=== PATIENT | male | born 1945 | race Caucasian/White ===

== ENCOUNTER 2022-08-19 22:19 | Emergency (ER) | payer OTHER ==
[~2022-08-19] VITALS: Ht 170.2 cm; Wt 79.4 kg
[2022-08-19] MEDS ORDERED: METOPROLOL TART25 MG PO (22:32)
[2022-08-19] MEDS ORDERED: ISOSORBIDE MONO20 MG PO (22:32)
[2022-08-19] MEDS ORDERED: LOSARTAN POTASS25 MG PO (22:33)
[2022-08-19] MEDS ORDERED: FLOMAX0.4 MG PO (22:33)
[2022-08-19] MEDS ORDERED: FUROSEMIDE20 MG (22:33)
[2022-08-19] MEDS ORDERED: TRAZODONE HCL50 MG PO (22:34)
[2022-08-19] MEDS ORDERED: LIPITOR20 MG PO (22:34)
[2022-08-19] MEDS ORDERED: AMLODIPINE BES2.5 MG PO (22:34)
== END 2022-08-20 06:40 | disposition home or self-care (01) ==
LOC: ED 22:19
DX: E11.649 Type 2 diabetes mellitus with hypoglycemia without coma (principal); T38.3X5A Adverse effect of insulin and oral hypoglycemic [antidiabetic] drugs, initial encounter; E87.1 Hypo-osmolality and hyponatremia; I10 Essential (primary) hypertension; E78.5 Hyperlipidemia, unspecified; Z79.899 Other long term (current) drug therapy; Z79.4 Long term (current) use of insulin
CPT/HCPCS: 36415; 80048; 80053; 81003; 83690; 85025; 99285; J7030

== ENCOUNTER 2022-09-08 11:45 | Inpatient (IN) | payer OTHER, MEDICARE ==
[~2022-09-08] VITALS: Ht 170.2 cm; Wt 71.8 kg
[~2022-09-08 11:45] MED LIST: AMLODIPINE BESY10 MG PO; FLOMAX0.4 MG PO; FUROSEMIDE20 MG PO; ISOSORBIDE MONO60 MG PO; LIPITOR40 MG PO; LOSARTAN POTASS25 MG PO; METOPROLOL TART50 MG PO; TRAZODONE HCL100 MG PO
--- OUTSIDE RECORDS SUMMARY | 2022-09-08 11:50 | XMS ---
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 Michelle has no Care Guidelines for this patient. Harjinder VISIT COUNT (12 MO.) [facility] NOTE: Visits indicate total known visits. ED/C VISIT TRACKING (12 MO.) [facility] 11[facility] COMPLAINT: - SHORTNESS OF BREATH 08/19/2022 22:20 [facility] TYPE: Emergency COMPLAINT: - BLOOD SUGAR PROBLEM DIAGNOSES: - Adverse effect of insulin and oral hypoglycemic [antidiabetic] drugs, initial encounter - Type 2 diabetes mellitus with hypoglycemia without coma - Other meterman (current) drug therapy - Hyperlipidemia, unspecified - Hypo-osmolality and hyponatremia - Essential (primary) hypertension - superintendent container terminal (current) use of insulin [facility] DIAGNOSES: - Dizziness and giddiness - Dizziness - Generalized abdominal pain - Nausea 06/20[facility]2022 10:[facility] DIAGNOSES: - Elevated Blood Sugar (Symptomatic) - Orthostatic hypotension - Dizziness - Pneumonia, unspecified organism - Cough - Acute kidney failure, unspecified INPATIENT VISIT TRACKING (12 MO.) 06[facility]20[facility]2022 10:[facility] DIAGNOSES: - Orthostatic hypotension - Acute kidney failure, unspecified - Other nonspecific abnormal finding of lung field - Pneumonia, unspecified organism [email or web address]
--- NOTE | 2022-09-09 16:43 | EKG ---
[facility] [address] [place], [place] [address] Signed Normal sinus rhythm Incomplete right bundle branch block Left anterior fascicular block Nonspecific ST abnormality Abnormal ECG No previous ECGs available Confirmed by JOHN MORALEZ MD ([id number]) on 09/09/2022 4:43:04 PM Electronically Signed By: JOHN MORALEZ MD 09/09/22 1643 PATIENT NAME: PATT DICKSON Electrocardiogram DATE OF : 49 PHYSICIAN: JOHN MORALEZ MD REPORT #: [id number] REPORT IS CONFIDENTIAL AND NOT TO BE RELEASED WITHOUT AUTHORIZATION
--- NOTE | 2022-09-09 16:43 | EKG ---
[facility] [address] [place] [address] Signed Sinus rhythm with 1st degree AV block Incomplete right bundle branch block Left anterior fascicular block Minimal voltage criteria for LVH, may be normal variant ( Jesús product ) Cannot rule out Anterior infarct , age undetermined Abnormal ECG When compared with ECG of 08-SEP-2022 11:55, (Unconfirmed) Sinus rhythm has replaced Junctional rhythm Confirmed by JONH MORALEZ MD ([id number]) on 09/09/2022 4:43:43 PM Electronically Signed By: JOHN MORALEZ MD 09/09/22 1643 PATIENT NAME: PATT DICKSON Electrocardiogram DATE OF : 49 PHYSICIAN: JOHN MORALEZ MD REPORT #: [id number] REPORT IS CONFIDENTIAL AND NOT TO BE RELEASED WITHOUT AUTHORIZATION
[2022-09-10] MEDS ORDERED: PLAVIX75 MG PO (14:56)
[2022-09-10] MEDS ORDERED: HYDRALAZINE HCL10 MG PO (15:36)
[2022-09-10] MEDS ORDERED: LANTUS100 UNITS/ SUB-Q (15:37)
[2022-09-10] MEDS ORDERED: KLOR-CON 1010 MEQ PO (15:39)
[2022-09-10] MEDS ORDERED: DYRENIUM50 MG PO (15:40)
[2022-09-10] MEDS ORDERED: ADULT LOW DOSE81 MG PO (17:01)
[2022-09-10] MEDS ORDERED: ALEVE220 MG PO (17:02)
[2022-09-10] MEDS ORDERED: PROAIR DIGIHAL90 MCG INH (17:03)
[2022-09-10] MEDS ORDERED: FLONASE ALLERG9.9 ML NAS (17:03)
[2022-09-10] MEDS ORDERED: ATROVENT HFA12.9 GM INH (17:04)
[2022-09-10] MEDS ORDERED: HYDROCODON-ACE1 EA10 PO (17:04)
[2022-09-10] MEDS ORDERED: ONDANSETRON ODT4 MG PO (17:05)
[2022-09-10] MEDS ORDERED: COMBIVENT RESPIM4 GM INH (17:06)
[2022-09-11] MEDS ORDERED: DOXYCYCLINE HY100 MG PO (11:34)
[2022-09-11] MEDS ORDERED: COMBIVENT RESPIM4 GM INH (11:35)
[2022-09-11] MEDS ORDERED: FLOMAX0.4 MG PO (11:36)
[2022-09-11] MEDS ORDERED: NICOTINE LOZENGE4 MG BUCCAL (11:36)
[2022-09-11] MEDS ORDERED: NICOTINE1 EAC2 TD (11:36)
[2022-09-11] MEDS ORDERED: OXYCODONE HCL5 MG PO (11:38)
[2022-09-11] MEDS ORDERED: ACETAMINOPHEN500 MG PO (11:38)
[2022-09-11] MEDS ORDERED: SENNA LAX8.6 MG PO (11:39)
[2022-09-11] MEDS ORDERED: TRAZODONE HCL100 MG PO (11:39)
[2022-09-11] MEDS ORDERED: PREDNISONE20 MG PO (11:40)
[2022-09-11] MEDS ORDERED: LANTUS100 UNITS/ SUB-Q (11:41)
[2022-09-11] MEDS ORDERED: ONE TOUCH ULTR1 EACH VI (11:42)
[2022-09-11] MEDS ORDERED: HUMALOG100 UNITS/ SUB-Q (11:42)
[2022-09-11] MEDS ORDERED: BUDESONIDE0.5 MG/2 M INH (11:47)
== END 2022-09-11 13:27 | DRG 191 ==
LOC: ED 11:45 → MS 18:08
PROVIDERS: ADMIT Internal Medicine; ATTEND Internal Medicine
DX: J44.1 Chronic obstructive pulmonary disease with (acute) exacerbation (principal); C34.90 Malignant neoplasm of unspecified part of unspecified bronchus or lung; E87.1 Hypo-osmolality and hyponatremia; N18.4 Chronic kidney disease, stage 4 (severe); Z66 Do not resuscitate; Z20.822 Contact with and (suspected) exposure to COVID-19; E87.5 Hyperkalemia; E11.649 Type 2 diabetes mellitus with hypoglycemia without coma; N40.0 Benign prostatic hyperplasia without lower urinary tract symptoms; E78.5 Hyperlipidemia, unspecified; G89.3 Neoplasm related pain (acute) (chronic); D63.1 Anemia in chronic kidney disease; F17.210 Nicotine dependence, cigarettes, uncomplicated; G89.4 Chronic pain syndrome; Z71.6 Tobacco abuse counseling; Z88.8 Allergy status to other drugs, medicaments and biological substances; Z79.82 Long term (current) use of aspirin; Z79.899 Other long term (current) drug therapy
CPT/HCPCS: 36415; 70450; 71045; 80048; 80053; 83036; 83880; 84484; 85025; 87502; 93005; 93010; 94640; 94760; 97162; 97165; A9270; C9803; G0480; J0696; J1650; J1815; J1940; J2920; J2930; J7030; J7512; U0003